=== PATIENT | male | born 1945 | race Caucasian/White ===

== ENCOUNTER → 2016-04-26 | Outpatient (CLI) | payer OTHER ==
[~2016-04-26] VITALS: Ht 182.9 cm; Wt 123.4 kg
[~2016-04-26] MED LIST: ADVAIR 500-501 EACH INH; ASPIR 8181 MG PO; CELEBREX 200 M200 M1 PO; CENTRUM SILVER1 EAC2 PO; COZAAR 25 MG TA25 M1 PO; FISH OIL 1,2001 EACH PO; LIPITOR 20 MG T20 M1 PO; METFORMIN HCL1000 M1 PO; NIGHTTIME SLEEP25 M1 PO; OMEPRAZOLE40 MG PO; PROBIOTIC1 EAC1 PO; VICTOZA0.6 MG/0.1 SUBQ; VITAMIN D5000 UNI1 PO
--- NOTE | ~2016-04-26 | HPC ---
[facility] [place] [address] PAIN MANAGEMENT CONSULTATION Name: BLANDONJENAE FRASER JR [facility] [id number] Admission: 04/26/16 Attend Phys: Celso Clemente DO Discharge: Date of : 49 Report #: [id number] THIS REPORT FOR: //name// CC: ELEAZAR Clemente HISTORY OF PRESENT ILLNESS: The patient is a pleasant 70-year-old gentleman seen in consultation at the request Dr. Pichardo for evaluation of pain, low back, left leg to the knee and occasionally beyond. The patient had prior been treated some 9 or 10 years ago for lumbar radicular symptoms, somewhat lost to follow up, returned to the pain clinic today noting pain recurred 8-10 weeks ago without specific antecedent trauma and overuse, low back, left buttock and leg, exacerbated with walking, standing, some relief when he is in a recliner or using a heating pad. He has been taking Celebrex 200 mg b.i.d. with some efficacy. He uses a zero gravity chair and heat. Notes the pain is steady and sharp. Denies specific weakness or paresthesia, no bowel or bladder continence changes noted. Subjective pain score is 3-9 on a 0-10 visual analog scale. REVIEW OF SYSTEMS: Complete review of systems attached to chart and gone over with the patient. He is , does not smoke or drink alcohol to excess. History of non-insulin dependent diabetes, controlled with Victoza and metformin, hypertension treated with losartan, some chronic lung disease, takes Advair and has a rescue metered dose inhaler, omeprazole for gastroesophageal reflux, dyslipidemia for which he takes atorvastatin. The patient is morbidly obese with a BMI of 36.9 kilograms per meter squared. The patient is retired. Notes pain impact score is 35/70. PHYSICAL EXAMINATION: GENERAL: A 6-feet tall, 260-pound gentleman. VITAL SIGNS: Blood pressure is 112/83, pulse is 84, respirations are 18. NEUROLOGIC: Cranial 2-12 are grossly intact. HEENT: Pupils equal, reactive to light and accommodation. Extraocular muscles are intact. There is no nystagmus or lateral gaze deviation. NECK: Cervical range of motion is full. Thyroid is unremarkable. Does have some tenderness over the left lateral epicondyle. Pain reproduced with extension of the left wrist. He notes that he started playing a guitar again, which he did as a young and with some prolonged time chording with his left hand, he seemed to have exacerbated chronic "tennis elbow" lateral epicondylitis. HEART: Regular rhythmical without murmur. LUNGS: Clear to auscultation. ABDOMEN: Endomorphic build. MUSCULOSKELETAL: Rises from chair using the armrest. Gait is generally tandem. Lumbar flexion is limited about 80 degrees. Hip flexion strength on the left is significantly limited to about 3/5, all other muscle groups are about 4/5. [address] [address] PAIN MANAGEMENT CONSULTATION Name: JENAE BLANDON JR Room #: REG [facility] Cannon#: [id number] Admission: 04/26/16 Attend Phys: Celso Clemente DO Discharge: Date of : 47 Report #: [id number] Positive straight leg raise is 30 degrees on the left. Grossly positive Carrie test on the left as well. Patellar reflex is diminished on the left, 0-1 versus 1/4 on the right. Achilles reflexes are generally symmetric. DIAGNOSTIC STUDIES: There are no recent diagnostic studies available for evaluation at this time. ASSESSMENT: Symptomatic lumbar radiculopathy, component of left sacroiliac joint dysfunction in a gentleman with non-insulin dependent diabetes and exogenous obesity. RECOMMENDATIONS: 1. Left SI joint injection under fluoroscopy today, monitoring blood sugars. 2. Continue Celebrex 200 mg b.i.d. 3. Lumbar epidural injection at L4-L5 with 60 mg triamcinolone next week if the SI joint does not afford adequate relief, PROCEDURE NOTE: Left SI joint injection under fluoroscopy. PROCEDURE: After written informed consent was obtained, the patient was taken to the fluoroscopy suite and placed in prone position. After sterile prep and drape, skin was raised. A 22-gauge spinal needle was placed to contact the inferior aspect of the left SI joint. Negative aspiration was accomplished, 1 mL of Omnipaque was injected, which showed spread in the joints followed with 40 mg triamcinolone plus 2 mL of 0.5% preservative-free bupivacaine. Needle was removed. The area was cleansed, Band-Aids applied. The patient monitored for an appropriate period of time, discharged in good and stable condition, noting significant improvement of baseline pain. Thank you for allowing me to participate in this patient's care. I will keep you abreast of his progress. <ELECTRONICALLY SIGNED> By: Celso Clemente DO 04/28/16 0824 1421 2157 Celso Clemente DO /nt
[2016-04-26 12:53] VITALS: BP 112/83
== END | disposition home or self-care (01) ==
LOC: PAIN 07:29
DX: M53.3 Sacrococcygeal disorders, not elsewhere classified (principal); M54.16 Radiculopathy, lumbar region; I10 Essential (primary) hypertension; E11.9 Type 2 diabetes mellitus without complications; E66.09 Other obesity due to excess calories; J44.9 Chronic obstructive pulmonary disease, unspecified; Z98.42 Cataract extraction status, left eye; Z98.41 Cataract extraction status, right eye; Z98.890 Other specified postprocedural states

== ENCOUNTER → 2018-09-13 | Outpatient (CLI) | payer OTHER ==
[~2018-09-13] VITALS: Ht 182.9 cm; Wt 120.7 kg
[~2018-09-13] MED LIST changes: +CRESTOR10 MG PO; -LIPITOR 20 MG T20 M1 PO; +TRULICITY0.75 MG/0. SUBQ
--- NOTE | ~2018-09-13 | HPC ---
[facility] [address] [place] [address] PAIN MANAGEMENT CONSULTATION Name: JENAE BLANDON JR Room #: REG [facility].#: [id number] Admission: 09/13/18 ������������������ Attend Phys: Reji Clemente DO Discharge: ������������������ Date of : 47 Report #: [id number] THIS REPORT FOR: //name// CC: Reji Pichardo DATE OF SERVICE: 09/13/2018 CHIEF COMPLAINT: Left low back pain. HISTORY OF PRESENT ILLNESS: As you know, the patient is a very pleasant 72-year-old male who returns today in followup visit per the request of his PCP, Dr. Ramiro Pichardo to undergo next in the series of left SI joint injections under fluoroscopic guidance. The patient did very well with previous SI joint injection noticing 80% improvement in overall pain from that procedure. Unfortunately, his symptoms have begun to return. He denies injury or trauma. Pain today is described as constant, dull and aching, exacerbated with walking, standing and any weightbearing; improves with lying down, medications, Aleve and previous SI joint injection. He returns today in followup visit to undergo next in the series of SI joint injections in hopes of improving recurrent pain. ALLERGIES: No known drug allergies. CURRENT MEDICATIONS: See chart. SOCIAL HISTORY: The patient denies tobacco, alcohol, IV or illicit drug use. He is retired. He is unaccompanied today. IMAGING: No new imaging available. PQRS: The patient has osteoarthritic changes of the lumbar spine, bilateral SI joints, left greater than right. He does not suffer from rheumatoid arthritis. He is placing pain intensity 2/10. He is not a fall risk, has not had a fall in the last 3 months. He is not on blood thinners but is treated for hypertension. He is not on chronic opioids and has a low opioid addiction potential. Pain impact score 41/70 indicating moderate interference with daily activities secondary to pain. PHYSICAL EXAMINATION: VITAL SIGNS: Blood pressure 143/88, pulse is 82, respiratory rate 16 and unlabored. The patient is 97% on room air. Height 6 feet tall, weight 266 pounds, BMI calculated 36.1. GENERAL: Well-developed, well-nourished, well-hydrated 72-year-old male appearing stated age. He is placing current pain score 2/10. EXTREMITIES: Show no clubbing, no cyanosis, [place] [address] PAIN MANAGEMENT CONSULTATION Name: JENAE BLANDON JR Room #: REG [facility] Samara#: [id number] Admission: 09/13/18 ������������������ Attend Phys: Reji Clemente DO Discharge: ������������������ Date of : 47 Report #: [id number] MUSCULOSKELETAL: There is palpatory tenderness noted over the left SI joint when compared to left. Deep palpation of the area causes intensification of pain and the patient's typical distribution. Gait is slightly antalgic favoring left lower extremity over right. Pain is elicited with positioning on to the left SI joint. Strength in the lower extremity appears symmetrical, though there is giveaway strength noted with hip flexion on the left due to pain generation. ASSESSMENT: 1. Left sacroiliac joint dysfunction. 2. Chronic low back pain. PLAN: 1. The patient has returned today in followup visit having noted excellent benefit with an SI joint injection provided by Dr. Celso Clemente 04/26/2016. He has been doing well and has not had any recurrence of symptoms since that injection. He returns today requesting a sacroiliac joint injection to be provided today in hopes of improving recurrent pain. The patient denies injury or trauma that may have led to symptom recurrence. We have discussed with the patient the risks and benefits of this procedure. These risks include but are not necessarily limited to bleeding, bruising, infection, worsening pain, no relief of pain, also risk of temporary or permanent muscle weakness, temporary or permanent nerve damage, possible paralysis and . The patient states understood and wished to proceed. 2. No medication changes made at today's visit. The patient will continue current medical therapy as previously prescribed. 3. We will see the patient back in followup visit on an as needed basis for possible next in the series of SI joint injections. PROCEDURE NOTE DESCRIPTION OF PROCEDURE: Sacroiliac joint injection. This is the first procedure of the second series that the patient is undergoing. After obtaining written consent, the patient was taken back to the fluoroscopy suite and placed in a prone position with a pillow under the pelvis to decrease the lumbar lordosis. The skin of the gluteal-sacral area overlying the right sacroiliac joint was prepped and draped in an aseptic fashion. A medial to lateral oblique projection allowed separation of the anterior and posterior branches of the joint space. The skin and subcutaneous tissue overlying the target site of injection was anesthetized using 3 mL of 1% lidocaine. A 22 gauge 3-1/2 inch needle with a bent tip was directed into the inferior aspect of the sacroiliac joint using a posterior approach. A ____ [address] [address] PAIN MANAGEMENT CONSULTATION Name: JENAE BLANDON JR Room #: REG S[facility]IA Valle#: [id number] Admission: 09/13/18 ������������������ Attend Phys: Reji Clemente DO Discharge: ������������������ Date of : 47 Report #: [id number] ____ at the needle hub was noted once the dorsal sacroiliac and interosseous ligaments were engaged. After negative aspiration for heme, a total of 3 mL of a solution containing 1 ml 40 mg per mL, 40 mg total triamcinolone and 2 mL bupivacaine 0.5% was injected, outlining the coin-shaped inferior recess of the joint. Provocation responses consisting of intense buttock pain were negative. After negative aspiration for heme, bupivacaine 0.5 % was slowly injected. The needle was then retracted approximately prison and the needle track was flushed with 1 mL of ____. Needle was then removed. A sterile bandage was placed over the injection site. There were no new sensory deficits present in the lower extremities. The heart rate, pulse oximetry and blood pressure were continuously monitored after the procedure. There were no apparent complications. The patient tolerated the procedure well and was carefully escorted to the recovery room in stable condition. The VAS was 2/10 before the procedure and 1/10 ten minutes after the procedure. After meeting discharge criteria, the patient was discharged home. ��������������������������������������������� ���������������������������������������� By: ��������������������������������������������� 1708 0059 Reji Clemente DO /nt
[2018-09-13 10:59] VITALS: BP 143/88
--- NOTE | 2018-09-13 11:26 | NUR ---
Pain Clinic Assessment: 1. History of Osteoarthritis: History of Rheumatoid Arthritis: 2. Height: 6 ft. 0 in. 182.9 cm. Weight: 266.0 lb. oz. 120.657 kg. Patient's BMI: 36.1 3. Vital Signs: BP: 143/88 Pulse: 82 Resp: 16 Temp: 02 Sat: 97 ECG Mon: 4. Pain Intensity: 2 5. Fall Risk: Dizziness: N Needs help standing or walking: N Fallen in the last 3 months: N Fall risk comments: 6. Patient on Blood Thinner: None 7. History of Hypertension: Y 8. Opioid Therapy greater than 6 weeks: N Opiate Contract Signed: 9. Risk Assessment Tool Provided: 10. Functional Assessment Tool: 11. Recreational Drug Use: Never Drug Type: Tobacco Use: Former Smoker Tobacco Type: Cigarettes Amount or Packs/day: 1 How Many Years: Alcohol Use: Yes Frequency: Weekly Quant: 1-2
== END | disposition home or self-care (01) ==
LOC: PAIN 06:58
DX: M53.3 Sacrococcygeal disorders, not elsewhere classified (principal); G89.29 Other chronic pain; I10 Essential (primary) hypertension; Z87.891 Personal history of nicotine dependence; Z79.82 Long term (current) use of aspirin; Z79.899 Other long term (current) drug therapy

== ENCOUNTER → 2018-12-26 | Outpatient (CLI) | payer OTHER ==
[~2018-12-26] VITALS: Ht 182.9 cm; Wt 120.2 kg
[2018-12-26 13:07] VITALS: BP 151/96
--- NOTE | 2018-12-26 13:16 | NUR ---
Pain Clinic Assessment: 1. History of Osteoarthritis: L SPIN SI JOINTS History of Rheumatoid Arthritis: Not Applicable 2. Height: 6 ft. 0 in. 182.9 cm. Weight: 265.0 lb. oz. 120.204 kg. Patient's BMI: 35.9 3. Vital Signs: BP: 151/96 Pulse: 81 Resp: 14 Temp: 02 Sat: 94 ECG Mon: 4. Pain Intensity: 6-10 5. Fall Risk: Dizziness: N Needs help standing or walking: N Fallen in the last 3 months: N Fall risk comments: 6. Patient on Blood Thinner: None 7. History of Hypertension: Y 8. Opioid Therapy greater than 6 weeks: N Opiate Contract Signed: 9. Risk Assessment Tool Provided: LOW 10. Functional Assessment Tool: 11. Recreational Drug Use: Never Drug Type: Tobacco Use: Former Smoker Tobacco Type: Amount or Packs/day: How Many Years: Alcohol Use: Yes Frequency: Weekly Quant:
--- NOTE | 2019-01-02 13:41 | HPC ---
[address] [address] PAIN MANAGEMENT CONSULTATION Name: BLANDONMARCOS FRASERE Brian SMITH Room #: REG [facility].#: [id number] Admission: 12/26/18 ������������������ Attend Phys: Reji Clemente DO Discharge: ������������������ Date of : 47 Report #: [id number] THIS REPORT FOR: //name// CC: Ady Pichardo DATE OF SERVICE: 12/26/2018 REFERRING PHYSICIAN: Dr. Ramiro Pichardo. CHIEF COMPLAINT: Right low back pain, upper buttock pain. HISTORY OF PRESENT ILLNESS: As you know, the patient is a very pleasant 73-year-old male returning in followup visit per the request of his PCP to undergo a right SI joint injection under fluoroscopic guidance. At our last visit, the patient underwent a left SI joint injection with excellent benefit. He is now experiencing right SI joint pain, for which he places pain at around 6-10/10. He returns today to undergo right SI joint injection in hopes of improving pain. He is able to localize the pain directly over the right SI joint. He returns today to undergo this procedure. ALLERGIES: No known drug allergies. CURRENT MEDICATIONS: See chart. SOCIAL HISTORY: The patient denies tobacco, alcohol, IV or illicit drug use. He is retired, retired years ago, unaccompanied today. IMAGING: No new imaging available. PQRS: The patient has known arthritic changes of the lumbar spine, bilateral SI joints, left greater than right. He has no diagnosis of rheumatoid arthritis. He is placing pain intensity at 6/10-10/10. He is not a fall risk, has not had a fall in the last 3 months, not on blood thinners, treated for hypertension. He is not on chronic opioids and has a low opioid addiction potential. Pain impact score 41/70 indicating moderate interference of daily activities secondary to pain. PHYSICAL EXAMINATION: VITAL SIGNS: Blood pressure 151/96, pulse 81, respiratory rate 14 and unlabored. The patient is 94% on room air, height 6 feet tall, weight 265 pounds, BMI calculated 35.9. GENERAL: Well-developed, well-nourished, well-hydrated 73-year-old male appearing stated age, pain is rated around 6-10/10. HEENT: Normocephalic, atraumatic. Pupils equal, round, reactive to light. [address] [address] PAIN MANAGEMENT CONSULTATION Name: JENAE BLANDON JR Room #: [facility] [id number] Admission: 12/26/18 ������������������ Attend Phys: Reji Clemente DO Discharge: ������������������ Date of : 47 Report #: [id number] EXTREMITIES: Show no clubbing, no cyanosis, no edema. MUSCULOSKELETAL: The patient does have some palpatory tenderness both over the left and right SI joints today, right greater than left. Deep palpation of the area causes intensification of the pain. Gait mildly antalgic. ASSESSMENT: 1. Right sacroiliac joint dysfunction. 2. Right sacroiliac joint pain. 3. Chronic left sacroiliac joint pain. 4. Chronic low back pain. 5. Chronic intractable pain. PLAN: 1. The patient returns today in followup visit to undergo a right SI joint injection under fluoroscopic guidance. He reports good efficacy with the left SI joint injection from our last visit. He returns with continued right SI joint pain. He wishes to undergo a right SI joint injection. He has been advised of the risks and benefits of the procedure, states he understood and wished to proceed. 2. No medication changes made at today's visit. The patient will continue current medical therapy as previously prescribed. 3. We will see the patient back in followup visit on an as needed basis for possible next in the series of SI joint injections. PROCEDURE NOTE DESCRIPTION OF PROCEDURE: Sacroiliac joint injection. This is the second procedure of the second series that the patient is undergoing. After obtaining written consent, the patient was taken back to the fluoroscopy suite and placed in a prone position with a pillow under the pelvis to decrease the lumbar lordosis. The skin of the gluteal-sacral area overlying the right sacroiliac joint was prepped and draped in an aseptic fashion. A medial to lateral oblique projection allowed separation of the anterior and posterior branches of the joint space. The skin and subcutaneous tissue overlying the target site of injection was anesthetized using 3 mL of 1% lidocaine. A 22-gauge 3-1/2 inch needle with a bent tip was directed into the inferior aspect of the sacroiliac joint using a posterior approach. A giving way at the needle hub was noted once the dorsal sacroiliac and interosseous ligaments were engaged. After negative aspiration for heme, a total of 0.4 mL of Omnipaque was injected, outlining the coin-shaped inferior recess of the joint. Provocation responses consisting of intense buttock pain were negative. After negative aspiration for heme, 3 mL of a solution [facility] [address] [place] [address] PAIN MANAGEMENT CONSULTATION Name: JENAE BLANDON JR Room #: REG [facility]#: [id number] Admission: 12/26/18 ������������������ Attend Phys: Reji Clemente DO Discharge: ������������������ Date of : 49 Report #: [id number] containing 1 mL of 40 mg per mL, 40 mg total triamcinolone, 2 mL of bupivacaine 0.5% was slowly injected. The needle was then retracted approximately chcf and the needle track was flushed with 1 mL of lidocaine 1%. Needle was then removed. A sterile bandage was placed over the injection site. There were no new sensory deficits present in the lower extremities. The heart rate, pulse oximetry and blood pressure were continuously monitored after the procedure. There were no apparent complications. The patient tolerated the procedure well and was carefully escorted to the recovery room in stable condition. The VAS was 6-10/10 before the procedure and 2/10 ten minutes after the procedure. After meeting discharge criteria, the patient was discharged home. ��������������������������������������������� <ELECTRONICALLY SIGNED> ���������������������������������������� By: Reji Clemente DO ��������������������������������������������� 01/02/19 1341 0813 1320 Reji Clemente DO /nt
== END | disposition home or self-care (01) ==
LOC: PAIN 06:52
DX: M53.3 Sacrococcygeal disorders, not elsewhere classified (principal); G89.29 Other chronic pain; M54.5 Low back pain; M19.90 Unspecified osteoarthritis, unspecified site; I10 Essential (primary) hypertension; Z87.891 Personal history of nicotine dependence; Z79.899 Other long term (current) drug therapy; Z98.890 Other specified postprocedural states

== ENCOUNTER → 2019-12-11 | Outpatient (CLI) | payer OTHER ==
[~2019-12-11] VITALS: Ht 182.9 cm; Wt 118.8 kg
--- NOTE | ~2019-12-11 | P ---
[place] [address] [place] [address] PROCEDURE REPORT Name: JENAE BLANDON JR Room #: REG [facility].#: [id number] Admission: 12/11/19 Attend Phys: Reji Clemente DO Discharge: Date of : 49 Report #: [id number] THIS REPORT FOR: cc: Ady Hutson,Ady Mallory,Reji Galeana DO ~ CC: Ady Clemente DATE OF SERVICE: 12/11/2019 PROCEDURE PERFORMED: Left sacroiliac joint injection under fluoroscopic guidance. This is the first procedure of the third series that the patient is undergoing. After obtaining written consent, the patient was taken back to the fluoroscopy suite and placed in a prone position with a pillow under the pelvis to decrease the lumbar lordosis. The skin of the gluteal-sacral area overlying the left sacroiliac joint was prepped and draped in an aseptic fashion. A medial to lateral oblique projection allowed separation of the anterior and posterior branches of the joint space. The skin and subcutaneous tissue overlying the target site of injection was anesthetized using 3 mL of 1% lidocaine. A 22-guage 3-1/2 inch needle with a bent tip was directed into the inferior aspect of the sacroiliac joint using a posterior approach. A giving way at the needle hub was noted once the dorsal sacroiliac and interosseous ligaments were engaged. After negative aspiration for heme, a total of 0.5 mL of Omnipaque was injected, outlining the coin-shaped inferior recess of the joint. Provocation responses consisting of intense buttock pain were negative. After negative aspiration for heme, 3 mL of a solution containing 1 mL 40 mg per mL, 40 mg total triamcinolone, 2 mL of bupivacaine 0.5% was slowly injected. The needle was then retracted approximately jail and the needle track was flushed with 1 mL of lidocaine. Needle was then removed. A sterile bandage was placed over the injection site. There were no new sensory deficits present in the lower extremities. The heart rate, pulse oximetry and blood pressure were continuously monitored after the procedure. There were no apparent complications. The patient tolerated the procedure well and was carefully escorted to the recovery room in stable condition. The VAS was 3-4/10 before the procedure and 0/[address] [address] PROCEDURE REPORT Name: JENAE BLANDON [facility] [id number] Admission: 12/11/19 Attend Phys: Reji Clemente DO Discharge: Date of : 49 Report #: [id number] after the procedure. After meeting discharge criteria, the patient was discharged home. By: 1146 1422 Reji Clemente DO /nt
--- NOTE | ~2019-12-11 | HPC ---
[facility] [place] [address] PAIN MANAGEMENT CONSULTATION Name: JENAE BLANDON JR Room #: REG [facility].#: [id number] Admission: 12/11/19 Attend Phys: Reji Clemente DO Discharge: Date of : 49 Report #: [id number] THIS REPORT FOR: cc: Gareth Hutson,Reji Isidro DO ~ CC: GARETH Gonzalez DATE OF SERVICE: 12/11/2019 REFERRING PHYSICIAN: Dr. Gareth Hutson. CHIEF COMPLAINT: Left low back and left upper buttock pain. HISTORY OF PRESENT ILLNESS: As you know, the patient is a very pleasant 74-year-old male who has returned today in followup visit indicating near complete resolution of his right low back and right upper buttock pain, but has begun to experience left low back and left upper buttock pain consistent with left sacroiliac joint dysfunction. He was doing very well over the last year, but unfortunately over the last couple of weeks, pain has begun to be noted in the left low back and left upper buttock region consistent with left SI joint pain. He returns to undergo left SI joint injection under fluoroscopic guidance as he has seen excellent benefit with treatment on his right side. The patient denies injury, trauma or falls that may have led to his symptom development. ALLERGIES: No known drug allergies. CURRENT MEDICATIONS: See chart. SOCIAL HISTORY: The patient denies tobacco, alcohol, IV or illicit drug use. He is retired, retired years ago. He is unaccompanied at today's visit. IMAGING: No new imaging available. PQRS: The patient has known arthritic changes of the lumbar spine, bilateral SI joints. He has no known diagnosis of rheumatoid arthritis. He places pain today at 3-4/10, is not a fall risk nor has he had a fall in last 3 months. He is not on blood thinners, but is treated for hypertension. He is not on chronic opioids, has a low opiate addiction potential based on our assessment tool. Pain impact is 41/70, [id number] interference of daily activities secondary to pain. PHYSICAL EXAMINATION: VITAL SIGNS: Blood pressure 131/85, pulse 80, respiratory rate [address] [id number] PAIN MANAGEMENT CONSULTATION Name: JENAE BLANDON Room #: REG [facility].#: [id number] Admission: 12/11/19 Attend Phys: Reji Clemnete DO Discharge: Date of : 49 Report #: [id number] unlabored. The patient is 97% on room air, height 6 feet tall, weight 261.8 pounds, BMI calculated 35.5. GENERAL: A well-developed, well-nourished, well-hydrated 74-year-old male appearing stated age, pain is rated today 3-4/10. HEENT: Normocephalic and atraumatic. Pupils are equal, round and reactive. Speech is fluent. EXTREMITIES: Show no clubbing, no cyanosis. No appreciable edema. MUSCULOSKELETAL: The patient does have palpatory tenderness over the left SI joint when compared to the right. Provocating testing of the SI joint is met with increased pain. Seated straight leg raising negative. Supine straight leg raising is only positive for SI joint dysfunction and there is no radiation of symptoms in classic dermatomal distribution. Lumbar provocation testing is met with axial back pain, no radiation of symptoms. ASSESSMENT: 1. Left sacroiliac joint pain. 2. Facet arthropathy of the lumbar spine. 3. Lumbosacral spondylosis without radicular symptoms. 4. Chronic right SI joint pain. PLAN: 1. The patient returns today in followup visit with new onset and progressively worsening left SI joint dysfunction. He has done very well with injections in the right SI joint, most recent was 1 year ago performed on 12/26/2018 with good and prolonged efficacy. The patient has not had a return of right SI joint pain, but has over the past couple of weeks, begun to experience left SI joint pain. He returns today to undergo left intra-articular SI joint injection under fluoroscopic guidance. The patient has been advised risks and benefits of a left SI joint injection. These risks include but are not necessarily limited to bleeding, bruising, infection, worsening pain, no relief of pain, also risk of temporary or permanent muscle weakness, temporary or permanent nerve damage, possible joint destruction and . The patient states understood and wished to proceed. 2. No medication changes made at today's visit. The patient will continue current medical therapy as previously prescribed. 3. We will see the patient back in followup visit on an as needed basis for the next in the series of left SI joint injections. By: [id number] Reji Clemente DO /nt
[2019-12-11 10:01] VITALS: BP 131/85
--- NOTE | 2019-12-11 10:19 | NUR ---
Pain Clinic Assessment: 1. History of Osteoarthritis: L SPIN SI JOINTS History of Rheumatoid Arthritis: Not Applicable 2. Height: 6 ft. 0 in. 182.9 cm. Weight: 261.8 lb. oz. 118.752 kg. Patient's BMI: 35.5 3. Vital Signs: BP: 131/85 Pulse: 80 Resp: 16 Temp: 02 Sat: 97 ECG Mon: 4. Pain Intensity: 3-4 5. Fall Risk: Dizziness: N Needs help standing or walking: N Fallen in the last 3 months: N Fall risk comments: 6. Patient on Blood Thinner: None 7. History of Hypertension: Y 8. Opioid Therapy greater than 6 weeks: N Opiate Contract Signed: 9. Risk Assessment Tool Provided: LOW RISK 0/3 10. Functional Assessment Tool: 41/70 11. Recreational Drug Use: Never Drug Type: Tobacco Use: Former Smoker Tobacco Type: Amount or Packs/day: How Many Years: Alcohol Use: Yes Frequency: Weekly Quant: 1-2
== END | disposition home or self-care (01) ==
LOC: PAIN 06:52
PROVIDERS: ATTEND Anesthesiology Pain Medicine
DX: M53.3 Sacrococcygeal disorders, not elsewhere classified (principal); M47.896 Other spondylosis, lumbar region; M47.897 Other spondylosis, lumbosacral region; G89.29 Other chronic pain; I10 Essential (primary) hypertension; Z98.890 Other specified postprocedural states; Z79.899 Other long term (current) drug therapy